=== PATIENT | male | born 2000 | race Two or more races ===

== ENCOUNTER 2022-01-24 20:01 | Emergency (ER) | payer OTHER ==
[2022-01-24 20:09] VITALS: BP 122/78; PULSE 74; TEMP 97; BMI 23.3
[2022-01-24] MEDS ORDERED: DIPHTH,PERTUSS(ACELL),TET 0.5 ML DISP.SYRIN IM ONE (20:38)
[2022-01-24] MEDS ORDERED: AMOX TR/POT CLAV 875MG/125MG TABLETS (FP) PO ONE (22:35)
[2022-01-24] MEDS ORDERED: AMOX TR/POT CLAV 875MG/125MG TABLETS (FP) ONE (22:43)
== END 2022-01-24 22:50 | disposition home or self-care (01) ==
LOC: JER 20:01 → JERFT 20:01
PROC: 0HQGXZZ Repair Left Hand Skin, External Approach (ICD-10-PCS; principal; 2022-01-24)
PROC: 3E0234Z Introduction of Serum, Toxoid and Vaccine into Muscle, Percutaneous Approach (ICD-10-PCS; 2022-01-24)
DX: S61.215A Laceration without foreign body of left ring finger without damage to nail, initial encounter (principal); W26.0XXA Contact with knife, initial encounter
CPT/HCPCS: 73140-TC-LT-FY; 90715; 99283-25